=== PATIENT | male | born 1960 | race Caucasian/White ===

== ENCOUNTER → 2017-05-04 | Outpatient (CLI) | payer OTHER | LOC: BMCIMAGING 16:41 | PROVIDERS: ATTEND Family Medicine | DX: S22.31XA Fracture of one rib, right side, initial encounter for closed fracture (principal); M25.551 Pain in right hip | CPT/HCPCS: 71101-PO ==

== ENCOUNTER 2018-09-30 07:15 | Inpatient (IN) | payer OTHER ==
[2018-09-30] MEDS ORDERED: ceFAZolin 2 GM/DEXTROSE 100 ML IV ONE (07:36)
[2018-09-30] MEDS ORDERED: LR 1,000 ML IV ONE (07:37)
[2018-09-30] MEDS ORDERED: cefOXitin SODIUM 2 GM in NS 100 ML IV ONE (09:40)
[2018-09-30] MEDS ORDERED: HYDROCODONE/APAP 10/325 TAB PO PRN (09:42)
[2018-09-30] MEDS ORDERED: ZOLPIDEM TARTRATE 5 MG TAB PO PRN (09:42)
[2018-09-30] MEDS ORDERED: SODIUM BENZOATE IV ONE (09:50)
[2018-09-30] MEDS ORDERED: CAFFEINE IV ONE (09:50)
[2018-09-30] MEDS ORDERED: NS IV ONE (09:50)
[2018-09-30] MEDS ORDERED: LORazepam 2 MG/ML INJ IVP PRN (10:16)
[2018-09-30] MEDS ORDERED: LORazepam 2 MG/ML INJ ONE (10:35)
--- NOTE | 2018-09-30 11:01 | PDHPUP ---
History & Physical Update H&P update statement: This history and physical update is based on an assessment of the patient which was completed after admission or registration (within 24 hours), but prior to the surgery/procedure. H&P update: no change in patient's condition since H&P completed, changes noted (pre-op caffeine for caffeine withdrawal headache)
[2018-09-30] MEDS ORDERED: PROPOFOL 200 MG/20 ML VIAL ONE ×2 (11:39→14:23)
[2018-09-30] MEDS ORDERED: MIDAZOLAM 2 MG/2 ML VIAL IVP ONE ×2 (11:58→12:08)
--- NOTE | 2018-09-30 11:59 | PDANEPAE ---
ANE Past Medical History - Cardiovascular History Hx Hypertension: No Hx Arrhythmias: No Hx Chest Pain: No Hx Coronary Artery / Peripheral Vascular Disease: No Hx CHF / Valvular Disease: No Hx Palpitations: No - Pulmonary History Hx COPD: No Hx Asthma/Reactive Airway Disease: No Hx Recent Upper Respiratory Infection: No Hx Oxygen in Use at Home: No Hx Sleep Apnea: No Sleep Apnea Screening Result - Last Documented: Positive Pulmonary History Comment: CHILDHOOD ASTHMA. CAT ALLERGY - Neurologic History Hx Cerebrovascular Accident: No Hx Seizures: No Hx Dementia: No - Endocrine History Hx Diabetes: No - Renal History Hx Renal Disorders: No - Liver History Hx Hepatic Disorders: No - Neurological & Psychiatric Hx Hx Neurological and Psychiatric Disorders: No - Cancer History Hx Cancer: No - Congenital Disorder History Hx Congenital Disorders: No - GI History Hx Gastrointestinal Disorders: Yes Gastrointestinal History Comment: DIVERTICULITIS - Other Health History Other Health History: NEG - Chronic Pain History Chronic Pain: Yes (BACK PAIN) - Surgical History Prior Surgeries: ING HERNIA X2. L KNEE. R KNEE ANE Review of Systems Review of Systems: - Exercise capacity METS (RN): 5 METS ANE Patient History - Allergies Allergies/Adverse Reactions: Iodine and Iodide Containing Produc Allergy (Verified 09/30/18 07:51) - Home Medications Home Medications: Acetaminophen/ASA/Caffeine [Excedrin Tablet (*)] 1 each PO DAILY PRN 09/30/18 [ Last Taken 09/16/18] Dicyclomine [Bentyl 10 MG (*)] 10 mg PO QID PRN 09/30/18 [Last Taken Unknown] Herbals/Supplements -Info Only 1 ea PO DAILY 09/30/18 [Last Taken Unknown] Hydrocodone/Acetaminophen [Hydrocodon-Acetaminophn 10-325] 1 each PO DAILY PRN 09/30/18 [Last Taken 09/29/18] LORazepam [Ativan (*)] 1 mg PO DAILY PRN 09/30/18 [Last Taken 09/16/18] Simvastatin [Simvastatin] 20 mg PO Q2D 09/30/18 [Last Taken 09/27/18] Zolpidem Tartrate [Ambien 5MG (*)] 5 - 10 mg PO HS PRN 09/30/18 [Last Taken 07/09 5MG] - NPO status NPO Since - Liquids (Date): 09/30/18 NPO Since - Liquids (Time): 02:15 NPO Since - Solids (Date): 09/29/18 NPO Since - Solids (Time): 20:00 - Smoking Hx Smoking Status: Former smoker - Family Anes Hx Family Hx Anesthesia Complications: NEG ANE Labs/Vital Signs - Vital Signs Blood Pressure: 113/74 Heart Rate: 67 Respiratory Rate: 16 O2 Sat (%): 94 Height: 173.99 cm Weight: 80.286 kg ANE Physical Exam - Airway Neck exam: FROM Mallampati Score: Class 1 Mouth exam: normal dental/mouth exam - Pulmonary Pulmonary: no respiratory distress - Cardiovascular Cardiovascular: regular rate and rhythym, no murmur, rub, or gallop - ASA Status ASA Status: II ANE Anesthesia Plan Anesthesia Plan: general endotracheal anesthesia
--- NOTE | 2018-09-30 12:08 | PDANEPAE ---
ANE History of Present Illness 58 yo for lap colectomy ANE Past Medical History - Cardiovascular History Hx Hypertension: No Hx Arrhythmias: No Hx Chest Pain: No Hx Coronary Artery / Peripheral Vascular Disease: No Hx CHF / Valvular Disease: No Hx Palpitations: No - Pulmonary History Hx COPD: No Hx Asthma/Reactive Airway Disease: No Hx Recent Upper Respiratory Infection: No Hx Oxygen in Use at Home: No Hx Sleep Apnea: No Sleep Apnea Screening Result - Last Documented: Positive Pulmonary History Comment: CHILDHOOD ASTHMA. CAT ALLERGY - Neurologic History Hx Cerebrovascular Accident: No Hx Seizures: No Hx Dementia: No - Endocrine History Hx Diabetes: No - Renal History Hx Renal Disorders: No - Liver History Hx Hepatic Disorders: No - Neurological & Psychiatric Hx Hx Neurological and Psychiatric Disorders: No - Cancer History Hx Cancer: No - Congenital Disorder History Hx Congenital Disorders: No - GI History Hx Gastrointestinal Disorders: Yes Gastrointestinal History Comment: DIVERTICULITIS - Other Health History Other Health History: NEG - Chronic Pain History Chronic Pain: Yes (BACK PAIN) - Surgical History Prior Surgeries: ING HERNIA X2. L KNEE. R KNEE ANE Review of Systems Review of Systems: - Exercise capacity METS (RN): 5 METS ANE Patient History - Allergies Allergies/Adverse Reactions: Iodine and Iodide Containing Produc Allergy (Verified 09/30/18 07:51) - Home Medications Home medications: home medication list seen and reviewed Home Medications: Acetaminophen/ASA/Caffeine [Excedrin Tablet (*)] 1 each PO DAILY PRN 09/30/18 [ Last Taken 09/16/18] Dicyclomine [Bentyl 10 MG (*)] 10 mg PO QID PRN 09/30/18 [Last Taken Unknown] Herbals/Supplements -Info Only 1 ea PO DAILY 09/30/18 [Last Taken Unknown] Hydrocodone/Acetaminophen [Hydrocodon-Acetaminophn 10-325] 1 each PO DAILY PRN 09/30/18 [Last Taken 09/29/18] LORazepam [Ativan (*)] 1 mg PO DAILY PRN 09/30/18 [Last Taken 09/16/18] Simvastatin [Simvastatin] 20 mg PO Q2D 09/30/18 [Last Taken 09/27/18] Zolpidem Tartrate [Ambien 5MG (*)] 5 - 10 mg PO HS PRN 09/30/18 [Last Taken 07/09 5MG] - NPO status NPO Status: no food or drink >8 hours NPO Since - Liquids (Date): 09/30/18 NPO Since - Liquids (Time): 02:15 NPO Since - Solids (Date): 09/29/18 NPO Since - Solids (Time): 20:00 - Smoking Hx Smoking Status: Former smoker - Family Anes Hx Family Hx Anesthesia Complications: NEG ANE Labs/Vital Signs - Vital Signs Blood Pressure: 113/74 Heart Rate: 67 Respiratory Rate: 16 O2 Sat (%): 94 Height: 5 ft 8.5 in Weight: 80.286 kg ANE Physical Exam - Airway Neck exam: FROM Mallampati Score: Class 2 Mouth exam: normal dental/mouth exam - Pulmonary Pulmonary: no respiratory distress - Cardiovascular Cardiovascular: regular rate and rhythym - ASA Status ASA Status: II ANE Anesthesia Plan Anesthesia Plan: general endotracheal anesthesia
[2018-09-30] MEDS ORDERED: fentaNYL 250 MCG/5 ML INJ ONE (12:09)
[2018-09-30] MEDS ORDERED: PROPOFOL/EMULSION 500 MG/50 ML BOTTLE IV ONE (12:09)
[2018-09-30] MEDS ORDERED: ROCURONIUM 50 MG/5 ML VIAL ONE (12:11)
[2018-09-30] MEDS ORDERED: MIDAZOLAM 2 MG/2 ML VIAL ONE (12:17)
[2018-09-30] MEDS ORDERED: BUPIVACAINE 0.25% 30 ML SDV ONE (12:50)
[2018-09-30] MEDS ORDERED: DEXAMETHASONE 4 MG/ML VIAL ONE (12:56)
[2018-09-30] MEDS ORDERED: ONDANSETRON 4 MG/2 ML VIAL ONE ×2 (12:57→14:40)
[2018-09-30] MEDS ORDERED: fentaNYL 100 MCG/2 ML INJ ONE ×2 (13:45→14:36)
[2018-09-30] MEDS ORDERED: KETOROLAC 30 MG/1 ML SDV ONE (14:05)
[2018-09-30] MEDS ORDERED: DIAZEPAM 5 MG/ML 1 ML SYR IVP PRN (14:09)
[2018-09-30] MEDS ORDERED: ONDANSETRON 4 MG/2 ML VIAL IVP PRN ×2 (14:09→14:33)
[2018-09-30] MEDS ORDERED: NALOXONE HCL 0.4 MG/ML INJ IVP PRN (14:09)
[2018-09-30] MEDS ORDERED: SUGAMMADEX SODIUM 200 MG/2 ML VIAL IVP ONE (14:15)
[2018-09-30] MEDS ORDERED: PROMETHAZINE HCL 25 MG/ML INJ IVP PRN (14:33)
[2018-09-30] MEDS ORDERED: TEMAZEPAM 15 MG CAP PO PRN (14:33)
[2018-09-30] MEDS ORDERED: HYDROmorphONE/DILAUDID 2 MG/ML INJ ONE (14:36)
[2018-09-30] MEDS: fentaNYL 100 MCG/2 ML INJ IVP PRN ×2 (14:37→14:42)
[2018-09-30] MEDS: HYDROmorphONE/DILAUDID 2 MG/ML INJ IVP PRN ×2 (14:38→15:00)
--- NOTE | 2018-09-30 14:43 | POSTOPPROG ---
Post Op Note Date of Operation: 09/30/18 Surgeon: Oliver Jacobson (, FACS) Mixing Supervisor: Rafaela James PA-C Anesthesiologist: Alek Jackson MD Anesthesia: GET(General Endotracheal) Pre-op Diagnosis: diverticulitis Post-op Diagnosis: same Procedure: lap sigmoid colectomy with primary colocolostomy Findings: chronic and subacute inflammatory changes sigmoid Inf/Abcess present in the surg proc area at time of surgery?: Yes Depth: Organ Space EBL: Minimal (25) Total fluids administered: 1000ml Complications: none Specimen(s): sigmoid colon
--- NOTE | 2018-09-30 14:49 | PDMN ---
Medical Necessity Medical necessity: Pt meets inpt criteria per MD order and [facility] [id number], Bowel Surgery: Colectomy, Partial, with or without Ostomy, Medicare inpt only list, 4 days. 58 y/o w/hx diverticulitis admitted for sigmoid colectomy w/anastomosis and post-op care.
[2018-09-30] MEDS ORDERED: LR 1,000 ML IV SCH (15:00)
[2018-09-30] MEDS: HYDROmorphONE/DILAUDID 1 MG/ML INJ IVP PRN ×3 (15:48→20:02)
[2018-09-30] MEDS: LORazepam 1 MG TAB PO PRN (15:48)
[2018-09-30] MEDS: LR 1,000 ML IV SCH (15:49)
[2018-09-30] MEDS: cefOXitin SODIUM 2 GM in NS 100 ML IV SCH (18:20)
[2018-09-30] MEDS: OXYCODONE/APAP 5/325 TAB PO PRN (23:35)
[2018-10-01] MEDS: OXYCODONE/APAP 5/325 TAB PO PRN ×3 (00:02→08:58)
[2018-10-01] MEDS: cefOXitin SODIUM 2 GM in NS 100 ML IV SCH ×2 (00:02→06:00)
[2018-10-01] MEDS: LORazepam 1 MG TAB PO PRN (00:11)
--- NOTE | 2018-10-01 03:11 | GOP ---
DATE OF OPERATION: 09/30/2018 SURGEON: Oliver Jacobson MD HOME HEALTH CLINICIAN: Rafaela James PA-C. ANESTHESIA: General endotracheal. Flower El MD. PREOPERATIVE DIAGNOSIS: Sigmoid diverticulitis. POSTOPERATIVE DIAGNOSIS: Sigmoid diverticulitis. PROCEDURE PERFORMED: Laparoscopic-assisted sigmoid colectomy with primary coloproctostomy. FINDINGS: Short-segment inflammatory change in the sigmoid colon at the pelvic brim, with uninvolved proximal and distal sigmoid colon. Primary hand-sewn anastomosis performed without mobilization of the splenic flexure. Tissue submitted for permanent section. ESTIMATED BLOOD LOSS: 25 mL. DESCRIPTION OF PROCEDURE: After informed consent was obtained, the patient was brought to the operat ing room and placed under general anesthesia. He was carefully padded in pressure points and placed in low lithotomy position. The abdomen and perineum were prepped and draped in the usual fashion. B efore proceeding, a time-out identification of the patient was performed. The patient had undergone a mechanical and antibiotic bowel preparation preoperatively following the ERAS protocol. 0.25% Marcaine was used to infiltrate all incision sites. A longitudinal incision was made through t base of the umbilicus and ventral traction applied to the abdominal wall as a Veress needle was in troduced into the peritoneal cavity. A pneumoperitoneum was established with CO2 gas to a pressure o f 15 mmHg. The Veress needle was withdrawn and replaced with a 5 mm bladeless trocar. A 30-degree s cope was introduced and the peritoneal cavity was visualized. Additional 5 mm ports were placed in t he suprapubic midline, left lower quadrant, and right lower quadrant. This allowed introduction of a traumatic grasping forceps, which were used to mobilize and manipulate the bowel. The peritoneum roshan ng the paracolic gutter was incised and moderate redundancy of the sigmoid colon was noted. The sigm oid colon was adherent to the pelvic sidewall at the point of maximum inflammation, and this was slow ly and carefully dissected away from the iliac vessels, observing the patient's ureter in the process . After the bowel was mobilized from lateral to medial, the distal mesentery was incised below the p oint of inflammation and the mesentery was taken down using the Harmonic scalpel, with minimal blood loss. The inferior mesenteric artery was taken down with the Harmonic scalpel as well, and just abov e this, the bowel became soft and pliable, indicating a safe area to transect and anastomose. The lo wer midline incision was extended to a length of approximately 6-7 cm. Anterior fascia was incised. The rectus muscles were mobilized in the midline and the peritoneotomy extended, and a small Rohit wound protector was introduced. This allowed mobilization of the sigmoid colon into the incision, an d the proximal and distal sections for resection were identified. Pretty atraumatic bowel clamps w ere placed proximally and distally. Krystal clamps were placed on the specimen side and the bowel div ided, and the specimen removed from the field, tagged with a suture on the distal end. The proximal and distal margins were subsequently anastomosed in an end-to-end 2-layered hand-sewn anastomosis as follows. The posterior row of the anastomosis was performed with interrupted 3-0 Vicryl sutures. Aguiar bsequently, the inner posterior row of the anastomosis was performed with continuous running 3-0 Vicr yl suture. This was continued anteriorly in a mucosal inverting fashion and the final anterior outer row of the anastomosis was performed with interrupted 3-0 Monocryl sutures in a Lembert fashion. Up on completion, the anastomosis was intact without undue tension. It was returned to the peritoneal c avity before performing a clean closure. The pneumoperitoneum was re-established and the anastomosis inspected and noted to be intact, and without torsion of the mesentery. There was no active bleedin g. The pelvis was aspirated and hemostasis appeared secure. The Rohit wound protector was removed and a clean closure was performed as follows. After gowns, gloves, and instruments were changed, the peritoneotomy was closed with continuous running 2-0 Vicryl suture. The anterior fascia was closed with 0 PDS suture. The wound was irrigated, approximated with 3-0 Vicryl suture. All incisions were then closed at the skin level with 4-0 Monocryl suture in a subcuticular fashion, followed by Dermab ond. The patient was returned extubated to the recovery room in satisfactory condition. Needle, spo nge, and instrument counts were correct. COMPLICATIONS: None. /[id number]/MODL
[2018-10-01] MEDS: LR 1,000 ML IV SCH (03:12)
[2018-10-01 06:02] LABS: PLATELET COUNT 209 10^3/uL (150-400)
[2018-10-01 07:21] VITALS: BP 92/62
[2018-10-01] MEDS ORDERED: ENOXAPARIN 40 MG/0.4 ML SYR SC SCH (09:00)
[2018-10-01] MEDS ORDERED: ATORVASTATIN CALCIUM 10 MG TAB PO SCH (09:00)
--- NOTE | 2018-10-01 09:48 | PDDCSUM ---
Discharge Summary Discharge Summary: #[id number] Dictated Amelia Jacobson MD, FACS
--- NOTE | 2018-10-01 10:02 | ASDISCHSUM ---
Discharge Information Plan Status:Home with No Needs Medically Cleared to Leave: Discharge Date: CM D/C Disposition:Home, Routine, Self-Care ADT D/C Disposition:Home, Routine, Self-Care Projected Discharge Date: Transportation at D/C:Family Discharge Delay Reason: Follow-Up Date: Discharge Slot: Final Diagnosis: Placement Information Patient Contact Information Contact Name:ABRAM Relationship: Address:[address] [place] [address] City:[place] Alternate Phone: State/Zip Code:[place] [address] Email: Financial Information Financial Class:BCOP Primary Plan Desc:[employer] Primary Plan Number:[id number] Secondary Plan Desc: Secondary Plan Number: Assessment Information LACE LACE Length of stay for Answers: Less than 1 day current admission Acuity / Level of Answers: Yes Care: Did the patient have an inpatient admission? # of Emergency department Answers: 0 visits in the last 6 months Score: 3 Date Signed: 10/01/2018 09:59 AM Electronically Signed By:Bouchra Butler Intervention Information
--- NOTE | 2018-10-01 14:25 | GDS ---
DISCHARGE DIAGNOSIS: Diverticulosis and chronic diverticulitis. PROCEDURE PERFORMED: 09/30/2018, laparoscopic sigmoid colectomy with primary colocolostomy. HOSPITAL COURSE: For details of admission history and physical, please see dictated summary. Briefl y, the patient is a 58-year-old male with multiple attacks of diverticulitis in the past, admitted fo r elective sigmoid resection. The patient underwent mechanical and antibiotic bowel preparation prio r to surgery, and underwent surgery following ERAS protocol on the day of admission. Postoperatively , he was advanced in his diet, had early return of bowel function with several loose stools mixed wit h some blood following the surgery. The patient was hemodynamically stable, afebrile, ambulatory. H is incision is healing well without sign of infection at time of discharge. He received perioperativ e Mefoxin for antibiotic prophylaxis, and this was discontinued within 24 hours after surgery. The patient was instructed in diet and activity advancement, and will follow up in my office in the n ext 1-2 weeks. DISCHARGE MEDICATIONS: Hydrocodone 10/325 one p.o. q.4-6 hours p.r.n. pain. Ambien 5-10 mg at bedti me p.r.n. insomnia. Bentyl 10 mg p.o. four times daily p.r.n. spasms. Excedrin tablets 1 p.o. q. da y p.r.n. headaches. Simvastatin 20 mg p.o. q.2 days. Lorazepam 1 mg p.o. daily p.r.n. Herbal suppl ements and vitamins. CONDITION AT TIME OF DISCHARGE: Satisfactory. /[id number]/MODL
--- NOTE | 2018-10-02 16:40 | POSTANESTH ---
Post Anesthetic Evaluation Cardiovascular Status: Normal, Stable Respiratory Status: Normal, Stable Level of Consciousness/Mental Status: Can Participate in Eval Pain Control: Adequate, Prn Tx Ordered Nausea/Vomiting Control: Adequate, Prn Tx Ordered Complications Possibly Related to Anesthesia: None Noted
== END 2018-10-01 10:57 | disposition home or self-care (01) | DRG 331 ==
LOC: F3N 07:15 → F3E 15:23
PROVIDERS: ADMIT Surgery; ATTEND Surgery
PROC: 0DBN4ZZ Excision of Sigmoid Colon, Percutaneous Endoscopic Approach (ICD-10-PCS; principal; 2018-09-30 10:45)
DX: K57.32 Diverticulitis of large intestine without perforation or abscess without bleeding (principal); K57.30 Diverticulosis of large intestine without perforation or abscess without bleeding; Z23 Encounter for immunization
CPT/HCPCS: G0008; J0690; J0694; J1100; J1170; J1650; J1885; J2060; J2250; J2405; J2704; J3010

== ENCOUNTER 2019-02-21 22:16 | Emergency (ER) | payer OTHER ==
--- NOTE | 2019-02-21 22:34 | EDPHY ---
H & P Stated Complaint: feels like closing throat Time Seen by Provider: 02/21/19 22:34 HPI/ROS: HPI CHIEF COMPLAINT: Throat closing HISTORY OF PRESENT ILLNESS: Patient is a 58-year-old male, otherwise healthy, presents to the emergency room with throat closing. He states this started around 630 at night he was at a [employer] restaurant eating Bangl[place]hi food. Does have a remote history of shellfish allergy, or sensitivities never had throat closing her anaphylaxis. He also has had an allergy to bee stings where he carries an EpiPen. He did not eat any seafood tonight. However while at a [place] restaurant he developed t sensation of throat closing. No rash. No trouble breathing. No wheezing. No vomiting no GI upset. It is now 10 40 at night and the patient presents emergency room as he still has the sensation. He has no trouble breathing, No trouble swallowing. Past Medical History: Denies significant medical history Past Surgical History: Denies significant surgical history Social History: Denies drugs alcohol tobacco. Family History: Noncontributory ROS REVIEW OF SYSTEMS: 10 Systems were reviewed and negative with the exception of the elements mentioned in the history of present illness. Exam Constitutional appears well nontoxic triage nursing summary reviewed, vital signs reviewed, awake/alert. Vital signs stable Eyes normal conjunctivae and sclera, EOMI, PERRLA. HENT posterior pharynx unremarkable no visible swelling on exam, uvula midline, normal inspection, atraumatic, moist mucus membranes, no epistaxis, neck supple/ no meningismus, no raccoon eyes. Respiratory no stridor, no drooling, clear to auscultation bilaterally, normal breath sounds, no respiratory distress, no wheezing. Cardiovascular rate normal, regular rhythm, no murmur, no edema, distal pulses normal. Gastrointestinal soft, non-tender, no rebound, no guarding, normal bowel sounds, no distension, no pulsatile mass. Genitourinary no CVA tenderness. Musculoskeletal no midline vertebral tenderness, full range of motion, no calf swelling, no tenderness of extremities, no meningismus, good pulses, neurovascularly intact. Skin pink, warm, & dry, no rash, skin atraumatic. Neurologic awake, alert and oriented x 3, AAOx3, moves all 4 extremities equally, motor intact, sensory intact, CN II-XII intact, normal cerebellar, normal vision, normal speech. Psychiatric normal mood/affect. Heme/Lymph/Immune no lymphadenopathy. Differential Diagnosis: Includes but is not limited to in a particular order allergic reaction, anaphylaxis, angioedema, food sensitivity cross exposure to seafood Medical Decision Making: Plan for this patient IV establishment IV fluid bolus , IV Solu-Medrol, IV Benadryl, IV Pepcid close observation and re-evaluation. Re-evaluation: 1230: Patient is requesting discharge. at bedside requesting discharge as well as the patient. He states he feels well. He states symptoms have resolved and he wants to go home. I do recommend further observation emergency room hours declined this. On re-examination 12:30 a.m. Is resting comfortably no acute distress. He has no stridor, no trouble swelling, no trouble breathing, no GI upset, vital signs are stable as been monitored here for over 2 hr and wants to go home. This been no progression of allergic reaction. Patient wants to be discharged I would like to object further however he has declined. He will be started on Benadryl Pepcid prednisone epinephrine pen he can have for safe keeping. He does understand return precautions return emergency room if there is worsening symptoms worsening allergic reaction symptoms including trouble breathing, rash, vomiting, not doing well. He understands rebound reaction. Went over this in detail with him and his . Return precautions discussed at length. They understand. Source: Patient - Personal History Current Tetanus Diphtheria and Acellular Pertussis (TDAP): Yes - Medical/Surgical History Hx Asthma: Yes Hx Chronic Respiratory Disease: No Hx Diabetes: No Hx Cardiac Disease: No Hx Renal Disease: No Hx Cirrhosis: No Hx Alcoholism: No Hx HIV/AIDS: No Hx Splenectomy or Spleen Trauma: No Other PMH: iguanal surgeries, bilateral knee laparoscopies, - Social History Smoking Status: Former smoker Constitutional: Initial Vital Signs Temperature (C) 36.6 C 02/21/19 22:19 Heart Rate 59 L 02/21/19 22:19 Respiratory Rate 20 02/21/19 22:19 Blood Pressure 115/65 02/21/19 22:19 O2 Sat (%) 95 02/21/19 22:19 O2 Delivery Mode Room Air Allergies/Adverse Reactions: Iodine and Iodide Containing Produc Allergy (Verified 02/21/19 22:19) Home Medications: Medication Instructions Recorded Acetaminophen/ASA/Caffeine 1 each PO DAILY PRN 09/30/18 [Excedrin Tablet (*)] Dicyclomine [Bentyl 10 MG (*)] 10 mg PO QID PRN 09/30/18 Herbals/Supplements -Info Only 1 ea PO DAILY 09/30/18 LORazepam [Ativan (*)] 1 mg PO DAILY PRN 09/30/18 Simvastatin 20 mg PO Q2D 09/30/18 Zolpidem Tartrate [Ambien 5MG (*)] 5 - 10 mg PO HS PRN 09/30/18 Hydrocodone/Acetaminophen 1 each PO Q4-6PRN PRN #30 tablet 10/01/18 [Hydrocodone-Acetamin 10-325 mg] EPINEPHrine [Epipen 0.3 MG] 0.3 mg IM ONCE #2 syr 02/21/19 Famotidine [Pepcid 20 MG (*)] 20 mg PO BID #6 tab 02/21/19 diphenhydrAMINE [Benadryl 25 MG 25 mg PO BID #6 tab 02/21/19 (*)] predniSONE 60 mg PO DAILY #9 tab 02/21/19 Medical Decision Making - Data Points Medications Given: Discontinued Medications Diphenhydramine HCl (Benadryl Injection) 25 mg IVP EDNOW ONE Stop: 02/21/19 22:43 Last Admin: 02/21/19 22:48 Dose: 25 mg Famotidine (Pepcid) 20 mg IVP EDNOW ONE Stop: 02/21/19 22:43 Last Admin: 02/21/19 22:48 Dose: 20 mg Sodium Chloride (Ns) 1,000 mls @ 0 mls/hr IV EDNOW ONE; Wide Open PRN Reason: Protocol Stop: 02/21/19 22:43 Last Admin: 02/21/19 22:47 Dose: 1,000 mls Methylprednisolone Sodium Succinate (Solu-Medrol) 125 mg IVP EDNOW ONE Stop: 02/21/19 22:43 Last Admin: 02/21/19 22:47 Dose: 125 mg Departure - Departure Disposition: Home, Routine, Self-Care Clinical Impression: Allergic reaction Condition: Good Instructions: Food Allergy (ED), Anaphylaxis (ED), Allergies (ED) Additional Instructions: 1. Rest and stay well-hydrated. 2. Medications for the next 3 days. 3. Return to the emergency room if you have worsening pain, trouble breathing, vomiting, rash, not doing well Referrals: Linn Clement MD [Primary Care Provider] - As per Instructions Prescriptions: diphenhydrAMINE [Benadryl 25 MG (*)] 25 mg PO BID #6 tab EPINEPHrine [Epipen 0.3 MG] 0.3 mg IM ONCE #2 syr Famotidine [Pepcid 20 MG (*)] 20 mg PO BID #6 tab predniSONE 60 mg PO DAILY #9 tab
[2019-02-21] MEDS ORDERED: NS 1,000 ML IV ONE (22:42)
[2019-02-21] MEDS ORDERED: methylPREDNISolone SOD SUCC 125 MG/2 ML VIAL IVP ONE (22:42)
[2019-02-21] MEDS ORDERED: FAMOTIDINE 20 MG/2 ML SDV IVP ONE (22:42)
[2019-02-22 00:23] VITALS: BP 91/65
== END 2019-02-22 00:36 | disposition home or self-care (01) ==
DX: T78.40XA Allergy, unspecified, initial encounter (principal); E86.9 Volume depletion, unspecified; Z87.891 Personal history of nicotine dependence
CPT/HCPCS: 96374; J1200; J2930